=== PATIENT | male | born 1945 | race Caucasian/White ===

== ENCOUNTER 2017-03-21 21:04 | Inpatient (IN) | payer OTHER, MEDICARE ==
[~2017-03-21] VITALS: Ht 174 cm; Wt 71.5 kg
[~2017-03-21 21:04] MED LIST: ASPI81TA82 PO; PROP10TA26 PO; Z.0.UNKNOWN
[2017-03-21 21:06] VITALS: BP 167/92; PULSE 66; RESP 18; TEMP 98.9; O2SAT 98
[2017-03-21 21:07] VITALS: O2SAT 98
[2017-03-21] MEDS ORDERED: SODIUM CHLOR 0.9% 1000 ML INJ 1,000 ML IV ONE (21:09)
[2017-03-21 21:14] VITALS: BP 145/65; PULSE 64; RESP 18; O2SAT 98
--- NOTE | 2017-03-21 21:18 | PD ---
HPI Chief Complaint: Stroke Alert Time Seen by Provider: 21:09 Travel History International Travel<30 days: No Contact w/Intl Traveler<30days: No Traveled to known affect area: No History of Present Illness HPI 71-year-old male with history of subarachnoid bleed in 2010, dementia, presents to the ER today brought in by EMS because he became less oriented according to patient's , and they noted that he has a left facial droop and mild left arm weakness. Patient is able to follow commands currently. He is awake and alert. However, it is not clear whether he is a reliable historian. He denies any pain anywhere. He was last seen normal at 8:30 PM. Modifying Factors: None Associated Signs & Symptoms: Disorientation, left facial droop, left arm weakness Risk Factors: Previous intracranial bleed PFSH Past Medical History Heart Rhythm Problems: Yes Cardiovascular Problems: Yes Cerebrovascular Accident: Yes PNEUMOCCOCAL Vaccine (Year): 2 Past Surgical History Abdominal Surgery: Yes (APPENDIX REMOVED ) Appendectomy: Yes Oral Surgery: Yes (TONSILECTOMY) Tonsillectomy: Yes Other Surgery: Yes Social History Alcohol Use: Yes (2 DRINKS TWICE A WEEK) Tobacco Use: Yes (1/2 PACK EVERY 3 DAYS) Substance Use: No Allergies-Medications (Allergen,Severity, Reaction): Coded Allergies: Penicillin (Verified Allergy, Unknown, 03/21/17) Reported Meds & Prescriptions Reported Meds & Active Scripts Active Review of Systems ROS Limitations: Altered Mental Status (not clear whether he is reliable historian) Physical Exam Narrative GENERAL: Well-developed elderly white male patient currently not in acute distress. Awake, alert. SKIN: Focused skin assessment warm/dry. HEAD: Atraumatic. Normocephalic. EYES: Pupils equal and round. No scleral icterus. No injection or drainage. ENT: No nasal bleeding or discharge. Mucous membranes pink and moist. NECK: Trachea midline. No JVD. CARDIOVASCULAR: Regular rate and rhythm. No murmur appreciated. RESPIRATORY: No accessory muscle use. Clear to auscultation. Breath sounds equal bilaterally. GASTROINTESTINAL: Abdomen soft, non-tender, nondistended. Hepatic and splenic margins not palpable. MUSCULOSKELETAL: No obvious deformities. No clubbing. No cyanosis. No edema. NEUROLOGICAL: Awake and alert. Notable left facial droop which appears to be more pronounced in the lower face and the upper face. Left tongue deviation. Mild left hand pronator drift. PSYCHIATRIC: Appropriate mood and affect; insight and judgment normal. Data Data Last Documented VS Vital Signs Date Time Temp Pulse Resp B/P Pulse Ox O2 Delivery O2 Flow Rate FiO2 03/21/17 21:26 99 Nasal Cannula 2 03/21/17 21:26 18 03/21/17 21:25 65 160/86 03/21/17 21:06 98.9 Orders Diet Npo (03/22/17 Breakfast) Activity Bed Rest (03/21/17 ) Electrocardiogram (03/21/17 ) I-Stat Creatinine (03/21/17 21:09) I-Stat Profile (03/21/17 21:09) Prothrombin Time / Inr (Pt) (03/21/17 21:09) Act Partial Throm Time (Ptt) (03/21/17 21:09) Complete Blood Count With Diff (03/21/17 21:09) Fibrinogen (03/21/17 21:09) Creatine Kinase (Cpk) (03/21/17 21:09) Troponin I (03/21/17 21:09) Ua Includes Microscopic (03/21/17 21:09) Drug Screen, Random Urine (03/21/17 21:09) Type And Screen (03/21/17 21:09) Ct Brain W/O Iv Contrast(Rout) (03/21/17 ) Chest, Single Ap (03/21/17 ) Consult Neurology (03/21/17 ) Blood Glucose (03/21/17 21:09) Ecg Monitoring (03/21/17 21:09) Neuro Checks Q2HX12,Q4H (03/21/17 21:09) Nursing Bedside Swallow Assess .ONCE (03/21/17 21:09) Iv Access Insert/Monitor (03/21/17 21:09) NPO (03/21/17 21:09) Oximetry (03/21/17 21:09) Oxygen Administration (03/21/17 21:09) Sodium Chlor 0.9% 1000 Ml Inj (Ns 1000 M (03/21/17 21:09) Resp Oxygen Kevin C Titrat 1-4 L (03/21/17 21:09) Cath For Specimen (03/21/17 21:09) (Hub Use Only)Inp Phy Cons/Ref (03/21/17 ) Aspirin (Aspirin) (03/21/17 22:00) Labs Laboratory Tests Test 03/21/17 21:14 White Blood Count 8.8 TH/MM3 Red Blood Count 4.79 MIL/MM3 Hemoglobin 14.8 GM/DL Bedside Hemoglobin 15.0 G/DL Hematocrit 44.0 % Bedside Hematocrit 44.0 % Mean Corpuscular Volume 91.9 FL Mean Corpuscular Hemoglobin 30.8 PG Mean Corpuscular Hemoglobin 33.6 % Concent Red Cell Distribution Width 13.6 % Platelet Count 182 TH/MM3 Mean Platelet Volume 9.4 FL Neutrophils (%) (Auto) 61.9 % Lymphocytes (%) (Auto) 27.8 % Monocytes (%) (Auto) 7.4 % Eosinophils (%) (Auto) 2.1 % Basophils (%) (Auto) 0.8 % Neutrophils # (Auto) 5.5 TH/MM3 Lymphocytes # (Auto) 2.5 TH/MM3 Monocytes # (Auto) 0.7 TH/MM3 Eosinophils # (Auto) 0.2 TH/MM3 Basophils # (Auto) 0.1 TH/MM3 CBC Comment DIFF FINAL Differential Comment Bedside Sodium 143 MMOL/L Bedside Potassium 3.9 MMOL/L Bedside Chloride 107 MMOL/L Bedside Blood Urea Nitrogen 17 MG/DL Bedside Creatinine 1.0 MG/DL Bedside Glucose 103 MG/DL [facility] Medical Decision Making Medical Screen Exam Complete: Yes Emergency Medical Condition: Yes Medical Record Reviewed: Yes Interpretation(s) EKG shows NSR, no ST elevation or depression, and no arrhythmias. No significant T-wave inversions. Laboratory Tests Test 03/21/17 21:14 Bedside Glucose 103 MG/DL (60-95) Last [address] 03/21/17 0000 Signed Impressions: Service Date/Time: Tuesday, March 21, 2017 21:16 - CONCLUSION: Chronic and small vessel ischemic changes without any evidence for acute hemorrhage or mass effect. . oJjo Hussein MD Chest X-Ray 03/21/17 0000 Signed Impressions: Service Date/Time: Tuesday, March 21, 2017 21:22 - CONCLUSION: No acute cardiopulmonary disease. Jojo Hussein MD Differential Diagnosis Stroke alertrule out intracranial bleed versus metabolic issues Narrative Course CT did not show any signs of acute intracranial processes. His glucose levels are within normal limits. EKG did not show any signs of dysrhythmias. While in the ER, patient's NIH stroke score is 2. However, his neurological symptoms and facial droop is rapidly clearing in the ER and on evaluation by Dr. Lynn, he does not feel that the patient needs TPA at this point. Patient has been given aspirin and is planned for medical admission. Case was discussed with Dr. Chery for admission. Diagnosis Primary Impression: Stroke Admitting Information Admitting Physician Requests: Admit Domenico Haque MD Mar 21, 2017 21:18
[2017-03-21 21:25] VITALS: BP 160/86; PULSE 65; RESP 18; O2SAT 98
[2017-03-21 21:26] VITALS: RESP 18; O2SAT 99
--- NOTE | 2017-03-21 21:28 | RADRPT ---
EXAM DATE/TIME: 03/21/2017 21:16 [facility] COMPARISON: CT BRAIN W/O CONTRAST, September 20, 2011, 9:58. INDICATIONS : Stroke alert; dysphasia and left facial droop. RADIATION DOSE: 43.53 CTDIvol (mGy) This report was called by Dr Hussein to Dr Reaves at 9: 20 5 PM. MEDICAL HISTORY : Non-responsive. SURGICAL HISTORY : Non-responsive. ENCOUNTER: Initial ACUITY: 1 day PAIN SCALE: Non-responsive LOCATION: cranial TECHNIQUE: Multiple contiguous axial images were obtained of the head. Using automated exposure control and adj ustment of the mA and/or kV according to patient size, radiation dose was kept as low as reasonably a chievable to obtain optimal diagnostic quality images. FINDINGS: There is no evidence for intracranial hemorrhage, mass effect, mass lesions, or edema. The visualize d bony structures appear intact. Moderate degree of brain atrophy is seen. Moderate periventricular white matter changes are seen nonspecific mostly consistent with chronic small vessel ischemic change s. There are no signs of acute infarction for technique. The left MCA appears somewhat dense, howeve r it has the same appearance as 2011 exam. CONCLUSION: Chronic and small vessel ischemic changes without any evidence for acute hemorrhage or mass effect. . Jojo Hussein MD on March 21, 2017 at 21:23 Board Certified Radiologist. This report was verified electronically.
--- NOTE | 2017-03-21 21:30 | RADRPT ---
EXAM DATE/TIME: 03/21/2017 21:22 [facility] COMPARISON: No previous studies available for comparison. INDICATIONS : Stroke alert. MEDICAL HISTORY : None. SURGICAL HISTORY : None. ENCOUNTER: Initial ACUITY: 1 day PAIN SCORE: Non-responsive. LOCATION: Bilateral chest FINDINGS: The lungs are clear without infiltrate, nodule, or mass. There is no appreciable pleural effusion fo r technique. Heart and mediastinum are unremarkable. There are atherosclerotic calcifications of the aorta due to chronic atherosclerotic disease. CONCLUSION: No acute cardiopulmonary disease. Jojo Hussein MD on March 21, 2017 at 21:27 Board Certified Radiologist. This report was verified electronically.
[2017-03-21 21:41] LABS: AUTOMATED NEUTROPHIL # 5.5 TH/MM3 (1.8-7.7); BASOPHIL # 0.1 TH/MM3 (0-0.2); BASOPHIL % 0.8 % (0.0-2.0); EOSINOPHIL # 0.2 TH/MM3 (0-0.4); EOSINOPHIL % 2.1 % (0.0-4.0); HEMO FLAGS DIFF FINAL; LYMPH % 27.8 % (9.0-44.0); LYMPHOCYTE # 2.5 TH/MM3 (1.0-4.8); MEAN CELL VOLUME 91.9 FL (80.0-100.0); MEAN CORPUSCULAR HEMOGLOBIN 30.8 PG (27.0-34.0); MEAN CORPUSCULAR HGB CONC 33.6 % (32.0-36.0); MONO % 7.4 % (0.0-8.0); NEUT % 61.9 % (16.0-70.0); PLATELET COUNT 182 TH/MM3 (150-450); RED BLOOD COUNT 4.79 MIL/MM3 (4.50-5.90); RED CELL DISTRIBUTION WIDTH 13.6 % (11.6-17.2); WHITE BLOOD COUNT 8.8 TH/MM3 (4.0-11.0)
[2017-03-21 21:42] LABS: I-STAT POTASSIUM 3.9 MMOL/L (3.5-4.9); I-STAT SODIUM 143 MMOL/L (138-146)
[2017-03-21] MEDS ORDERED: SODIUM CHLOR 0.9% 1000 ML INJ 1,000 ML IV SCH (21:55)
[2017-03-21] MEDS ORDERED: SODIUM CHLORIDE 0.9% FLUSH 10 ML FLUSH IV FLUSH PRN ×2 (22:00→22:30)
[2017-03-21] MEDS ORDERED: ASPIRIN 325 MG TAB PO ONE (22:00)
[2017-03-21] MEDS ORDERED: GLUCAGON 1 MG/ML VIAL IM/SQ PRN (22:00)
[2017-03-21] MEDS ORDERED: DEXTROSE 50% IN WATER 50 ML VIAL(D50) IV PUSH PRN (22:00)
[2017-03-21 22:01] LABS: CREATINE KINASE 79 U/L (39-308)
[2017-03-21 22:23] LABS: PROTHROMBIN TIME - PATIENT 11.4 SEC (9.8-11.6)
--- NOTE | 2017-03-21 22:23 | MB ---
cc: JERROD BROOKS M.D. DATE OF CONSULTATION 03/21/[address] Haque. REASON FOR CONSULTATION Stroke alert. HISTORY OF PRESENT ILLNESS Mr. Wang is a 71-year-old man who was last seen normal at 8:30. He was found shortly thereafter to have left facial droop, left-sided weakness, was confused and was less oriented. He presented to the emergency room as a stroke alert. In the interim, however, he has had complete resolution of his symptoms. PAST MEDICAL HISTORY 1. History of subarachnoid hemorrhage in 2010. 2. History of dementia. MEDICATIONS 1. He takes an aspirin a day but has not been on this for quite sometime. 2. And inderal. SOCIAL HISTORY He does smoke. Does drink alcohol. NEUROLOGICAL EXAMINATION VITAL SIGNS: Blood pressure is 160/86, pulse 65, respiratory rate is 18, temperature is 98.9 degrees. Higher cortical function, he is alert. He is oriented to himself, not to place. Speech is fluent with no paraphasic errors. No dysarthria. Cranial nerves are intact. He has no facial droop at the present time. On motor examination there is 5/5 strength of all major groups in both upper and lower extremities. Fine motor skills normal. There is no drift. Reflexes are symmetrical. IMAGING CT of the brain reveals chronic changes. . No acute change present. LABORATORY DATA The white count is 8800, hemoglobin 14.8, hematocrit 44%, platelets 182,000. Sodium is 143, potassium 3.9, chloride 107. BUN is 17, creatinine 1.0. Glucose 103. EKG is sinus rhythm. IMPRESSION Probable TIA. He has resolved his symptoms completely at the present time. For that reason would not recommend TPA. He is not a candidate for intervention given the resolution also and therefore we do not need to proceed with any type of advanced imaging. At the present time I would recommend starting aspirin 325 mg daily. We will obtain further evaluation with an MRI, MRA of brain, carotid ultrasound, echocardiogram and lipid panel. MD LIZETH Whitt/MOIRA /9:56 PM /10:10 PM
[2017-03-21] MEDS ORDERED: NALOXONE HCL 0.4 MG/ML AMP IV PRN (22:30)
[2017-03-21] MEDS ORDERED: ONDANSETRON HCL 4 MG/2 ML VIAL IVP PRN (22:30)
[2017-03-21] MEDS: SODIUM CHLOR 0.9% 1000 ML INJ 1,000 ML IV SCH (22:33)
[2017-03-21 23:10] VITALS: BP 152/70; PULSE 58; RESP 18; O2SAT 100
[2017-03-21] MEDS ORDERED: PROP120C PO (23:12)
[2017-03-21] MEDS ORDERED: DONE5TAB7 PO (23:12)
[2017-03-21] MEDS ORDERED: CLOP75TA PO (23:12)
[2017-03-21] MEDS ORDERED: MEMA1TAB PO (23:12)
[2017-03-21] MEDS ORDERED: LOVA10TA PO (23:12)
[2017-03-22] VITALS (8 sets, daily range): BP systolic 131–149; BP diastolic 63–76; PULSE 51–249; RESP 17–20; TEMP 96.2–97.3; O2SAT 91–99
--- NOTE | 2017-03-22 00:46 | RADRPT ---
EXAM DATE/TIME: 03/21/2017 23:50 [facility] COMPARISON: No previous studies available for comparison. INDICATIONS : Transient ischemic attack. MEDICAL HISTORY : CVA. Irregular heartbeat. Clotting problems. SURGICAL HISTORY : Tonsillectomy. Appendectomy. Blood transfusions. ENCOUNTER: Initial ACUITY: 1 day PAIN SCORE: 0/10 LOCATION: Bilateral neck PEAK SYSTOLIC VELOCITIES (cm/sec): ICA/CCA RATIO: Right: 1.0 Left: 1.5 ICA: Right: 63 Left: 88 CCA: Right: 61 Left: 58 ECA: Right: 79 Left: 76 VERTEBRAL: Right: 72 antegrade Left: 34 antegrade Elevated flow velocities and ICA/CCA ratios have been found to correlate with increased degrees of vessel stenosis, calculated as percentage of diameter relative to a normal segment of distal ICA/CCA FINDINGS: Ultrasound of the carotid arteries was performed bilaterally using real-time Doppler and color Dopple r imaging. Examination of the right carotid artery demonstrates mild fibrous plaque within the bifurcation. No w aveform abnormalities are identified and no spectral broadening is seen. Examination of the left carotid artery demonstrates mixed fibrous and calcific plaque within the bulb . No waveform abnormalities are identified and no spectral broadening is seen. There is antegrade flow in both vertebral arteries. CONCLUSION: 1. No evidence of hemodynamically significant lesion. Dom Diallo MD on March 22, 2017 at 0:43 Board Certified Radiologist. This report was verified electronically.
--- NOTE | 2017-03-22 02:02 | HHI.HP ---
[facility] Unknown Admission Diagnosis stroke alert Diagnoses: (1) Stroke Diagnosis: Principal Travel History International Travel<30 Days: No Contact w/Intl Traveler <30 Da: No Traveled to Known Affected Are: No History of Present Illness Mr. Wang is a 71 year old male. He has dementia and is a smoker at baseline. 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 They report an acute onset of left facial droop, slurred speech, confussion, and left hand weakness. These symptoms have returned to baseline. Some chronic neurodeficits are present ( and may in part be related to his dementia) secondary to a hemorrhagic CVA in 2010. When I visited him he has no complaints and says he feels his normal self. No headaches. No nausea. His father used to have TIAs. Review of Systems Constitutional: DENIES: Fatigue, Fever, Chills Eyes: DENIES: Blurred vision, Diplopia Ears, nose, mouth, throat: DENIES: Vertigo Respiratory: DENIES: Shortness of breath Cardiovascular: DENIES: Chest pain, Palpitations, Syncope Gastrointestinal: DENIES: Abdominal pain, Black stools, Bloody stools Musculoskeletal: DENIES: Joint pain Integumentary: DENIES: Abnormal pigmentation Hematologic/lymphatic: DENIES: Bruising Immunologic/allergic: DENIES: Eczema Neurologic: DENIES: Abnormal gait, Headache, Paresthesias Psychiatric: DENIES: Anxiety Past Family Social History Past Medical History Hemorrhagic CVA in 2010 Smoker Dementia Past Surgical History subarachnoid hemorrhage intervention Reported Medications Reported Meds & Active Scripts Active Reported Propranolol ER 24 HR (Propranolol HCl) 120 Mg Cap 120 Mg PO DAILY Lovastatin 10 Mg Tab 10 Mg PO DAILY Clopidogrel (Clopidogrel Bisulfate) 75 Mg Tab 75 Mg PO DAILY Donepezil 5 Mg Tab 5 Mg PO HS Memantine 5 Mg Tab 5 Mg PO BID Allergies: Coded Allergies: Penicillin (Verified Allergy, Unknown, 03/21/17) Active Ordered Medications Administered Medications Medications (Trade) Dose Ordered Sig/Abraham Route PRN Reason Start Time Stop Time Status Last Admin Dose Admin Sodium Chloride (NS 1000 ml Inj) 1,000 ml @ 100 mls/hr Q10H IV 03/21/17 22:18 03/21/17 22:33 Family History TIAs in father Social History Smoker Infrequent alcohol use No drug abuse Physical Exam Vital Signs Vital Signs Date Time Temp Pulse Resp B/P Pulse Ox O2 Delivery O2 Flow Rate FiO2 03/22/17 00:20 64 03/22/17 00:15 98 2.00 03/22/17 00:00 96.2 60 18 142/68 98 03/21/17 23:10 58 18 152/70 100 Nasal Cannula 2 03/21/17 21:26 99 Nasal Cannula 2 03/21/17 21:26 18 99 Nasal Cannula 2 03/21/17 21:25 65 18 160/86 98 Nasal Cannula 2 03/21/17 21:14 64 18 145/65 98 Nasal Cannula 2 03/21/17 21:07 98 Nasal Cannula 2.00 03/21/17 21:07 98 2.00 03/21/17 21:06 98.9 66 18 167/92 98 Physical Exam GENERAL: NAD, A&Ox3 SKIN: Warm and dry. HEAD: Normocephalic. EYES: No scleral icterus. No injection or drainage. NECK: Supple, trachea midline. No JVD or lymphadenopathy. CARDIOVASCULAR: Regular rate and rhythm without murmurs, gallops, or rubs. RESPIRATORY: Breath sounds equal bilaterally. No accessory muscle use. GASTROINTESTINAL: Abdomen soft, non-tender, nondistended. MUSCULOSKELETAL: No cyanosis, or edema. BACK: Nontender without obvious deformity. No CVA tenderness. NEURO: Symmetrical strength in legs and arms/hands. Some upper extremity movement deficits on left (chronic). Laboratory Laboratory Tests Test 03/21/17 03/21/17 21:14 21:40 White Blood Count 8.8 Red Blood Count 4.79 Hemoglobin 14.8 Bedside Hemoglobin 15.0 Hematocrit 44.0 Bedside Hematocrit 44.0 Mean Corpuscular Volume 91.9 Mean Corpuscular Hemoglobin 30.8 Mean Corpuscular Hemoglobin 33.6 Concent Red Cell Distribution Width 13.6 Platelet Count 182 Mean Platelet Volume 9.4 Neutrophils (%) (Auto) 61.9 Lymphocytes (%) (Auto) 27.8 Monocytes (%) (Auto) 7.4 Eosinophils (%) (Auto) 2.1 Basophils (%) (Auto) 0.8 Neutrophils # (Auto) 5.5 Lymphocytes # (Auto) 2.5 Monocytes # (Auto) 0.7 Eosinophils # (Auto) 0.2 Basophils # (Auto) 0.1 CBC Comment DIFF FINAL Differential Comment Bedside Sodium 143 Bedside Potassium 3.9 Bedside Chloride 107 Bedside Blood Urea Nitrogen 17 Bedside Creatinine 1.0 Bedside Glucose 103 Total Creatine Kinase 79 Troponin I LESS THAN 0.02 Blood Type O POSITIVE Antibody Screen NEGATIVE Blood Bank Comment Prothrombin Time 11.4 Prothromb Time International 1.0 Ratio Activated Partial 27.0 Thromboplast Time Fibrinogen 285 Result Diagram: 03/21/172113 Assessment and Plan Problem List: (1) Stroke ICD Code: I63.9 Status: Acute (2) Dementia ICD Code: F03.90 Status: Acute (3) History of hemorrhagic stroke with residual hemiparesis ICD Code: I69.359 Status: Acute Assessment and Plan Acute CVA vs. TIA MRI, MRA Neurology consulted Follow clinically Aspirin Neuro checks Dementia Supportive care May be related to history of brain hemorrhage Hx of Brain Hemorrhage Supportive care Tobacco Abuse Cessation recommended Code Status Full Code Physician Certification 2 Midnight Certification Type: Admission for Inpatient Services Order for Inpatient Services The services are ordered in accordance with Medicare regulations or non- Medicare payer requirements, as applicable. In the case of services not specified as inpatient-only, they are appropriately provided as inpatient services in accordance with the 2-midnight benchmark. Estimated LOS (days): 1 days is the estimated time the patient will need to remain in the hospital, assuming treatment plan goals are met and no additional complications. Post-Hospital Plan: Home Lul Chery MD March 22, 2017 02:01
[2017-03-22 04:18] LABS: BACTERIA, URINE MOD /hpf; BLOOD, URINE NEG (NEG); GLUCOSE,URINE NEG (NEG); KETONE, URINE NEG (NEG); MUCUS URINE FEW /lpf (OCC); NITRITE,URINE NEG (NEG); PH, URINE 7.5 (5.0-8.5); SQUAMOUS EPITHELIAL CELL URINE <1 /hpf (0-5); TRIPLE PHOSPHATE CRYSTAL,URINE OCC /hpf; URINE COLOR YELLOW (YELLW/STRAW)
[2017-03-22 04:32] LABS: AMPHETAMINE, URINE NEG (NEG); BARBITURATES, URINE NEG (NEG); COCAINE, URINE NEG (NEG)
--- NOTE | 2017-03-22 05:34 | HHI.PR ---
Blank section for building Received call from RN that patient had 30- 40 sec run of asymptomatic Vtach: VS- 149/76,19,99% ON 2L/NC telemetry reviewed, BMP and mag ordered stat Cardiology consult place discussed with Dr. Bejarano- Transfer to [facility] for closer monitoring (Yanet Frey) Yanet Frey March 22, 2017 05:34 Della Bejarano MD May 03, 2017 11:42
[2017-03-22] MEDS: SODIUM CHLOR 0.9% 1000 ML INJ 1,000 ML IV SCH (05:56)
[2017-03-22 06:03] LABS: AUTOMATED NEUTROPHIL # 4.6 TH/MM3 (1.8-7.7); BASOPHIL % 0.6 % (0.0-2.0); EOSINOPHIL # 0.2 TH/MM3 (0-0.4); EOSINOPHIL % 2.6 % (0.0-4.0); HEMATOCRIT 38.3 % (39.0-51.0); HEMO FLAGS DIFF FINAL; LYMPH % 30.1 % (9.0-44.0); LYMPHOCYTE # 2.3 TH/MM3 (1.0-4.8); MEAN CELL VOLUME 91.2 FL (80.0-100.0); MEAN CORPUSCULAR HEMOGLOBIN 31.8 PG (27.0-34.0); MEAN CORPUSCULAR HGB CONC 34.9 % (32.0-36.0); MONO % 6.6 % (0.0-8.0); NEUT % 60.1 % (16.0-70.0); PLATELET COUNT 141 TH/MM3 (150-450); RED CELL DISTRIBUTION WIDTH 13.5 % (11.6-17.2); WHITE BLOOD COUNT 7.7 TH/MM3 (4.0-11.0)
[2017-03-22 06:30] LABS: ALKALINE PHOSPHATASE 84 U/L (45-117); ALT (GPT) 22 U/L (12-78); ANION GAP 8 MEQ/L (5-15); AST (GOT) 17 U/L (15-37); BICARBONATE 24.7 MEQ/L (21.0-32.0); BLOOD UREA NITROGEN 16 MG/DL (7-18); CHLORIDE 110 MEQ/L (98-107); GLOMERULAR FILTRATION RATE 87 ML/MIN (>89); HDL CHOLESTEROL 22.9 MG/DL (40.0-60.0); LDL CHOLESTEROL 84 MG/DL (0-99); MAGNESIUM 2.1 MG/DL (1.5-2.5); SODIUM (NA) 143 MEQ/L (136-145); TOTAL BILIRUBIN ADULT 0.2 MG/DL (0.2-1.0)
[2017-03-22] MEDS ORDERED: INSULIN ASPART SUPPLEMENTAL SCALE SQ SCH (07:00)
[2017-03-22] MEDS ORDERED: ATROPINE SULFATE 1 MG/10 ML SYRINGE ONE (08:52)
[2017-03-22] MEDS ORDERED: SODIUM CHLORIDE 0.9% FLUSH 10 ML FLUSH IV FLUSH SCH ×2 (09:00)
[2017-03-22] MEDS ORDERED: ASPIRIN 325 MG TAB PO SCH (09:00)
--- NOTE | 2017-03-22 10:08 | RADRPT ---
EXAM DATE/TIME: 03/22/2017 09:18 [facility] COMPARISON: CT BRAIN W/O CONTRAST, March 21, 2017, 21:16. INDICATIONS : Altered mental status. MEDICAL HISTORY : Dementia. Stroke SURGICAL HISTORY : Appendectomy. Tonsillectomy. ENCOUNTER: Initial ACUITY: 2 day PAIN SCORE: 0/10 LOCATION: head TECHNIQUE: Multiplanar, multisequence MRI of the brain was performed without contrast. FINDINGS: There are a few punctate areas of focally restricted diffusion and high convexity with right posterio r frontal cortex and a single similar focus in the posterior right temporal region consistent with sm all areas of subacute cortical infarction. There is moderate chronic appearing deep white matter T2 p rolongation. Mild central and cortical atrophic change. There is no evidence of intracranial mass or recent hemorrhage. He the extracranial structures are benign and intact. CONCLUSION: Several tiny areas of subacute cortical infarction in the right hemisphere. Atrophy and chronic white matter changes. Alo Garcia MD on March 22, 2017 at 10:03 Board Certified Radiologist. This report was verified electronically.
--- NOTE | 2017-03-22 10:15 | RADRPT ---
EXAM DATE/TIME: 03/22/2017 09:18 [facility] COMPARISON: No previous studies available for comparison. INDICATIONS : Altered mental status. MEDICAL HISTORY : Stroke Dementia. SURGICAL HISTORY : Appendectomy. Tonsillectomy. ENCOUNTER: Initial ACUITY: 2 day PAIN SCORE: 0/10 LOCATION: head Please note a normal MRA of the brain does not entirely exclude the possibility of a small aneurysm, nor the possibility of distal intracranial vessel disease. TECHNIQUE: 3D time of flight MRA was performed. Source images, multiplanar STS MIP, and 3D volume MIP reconstru ctions were reviewed. FINDINGS: There is excellent visualization of the major intracranial arteries out to the second-order branch ve ssels. There is no evidence for aneurysm, vessel truncation or stenosis, and no evidence for vascula r malformation. CONCLUSION: Normal examination. Alo Garcia MD on March 22, 2017 at 10:11 Board Certified Radiologist. This report was verified electronically.
[2017-03-22 11:11] LABS: HEMOGLOBIN A1b 1.3 %; HEMOGLOBIN Ao 87.2 %; HEMOGLOBIN LA1C 1.7 %; HEMOGLOBIN P3 3.4 %
--- NOTE | 2017-03-22 11:58 | MB ---
cc: YENNIFER SIMON DATE OF CONSULTATION 03/22/2017 REASON FOR CONSULTATION Evaluation of possible ventricular tachycardia. CHIEF COMPLAINT The patient was moved to ICU due to apparent tachycardia on telemetry. PRESENT ILLNESS Bird Wang is a 71-year-old man admitted to the hospital with a TIA. He had left facial droop and left-sided weakness and was confused and less oriented. This was detected by the ex- and he was brought into the hospital. He was on a different floor and on telemetry they thought he had a run of V-tach. I am looking at the strips. This is from March 22 at 05:00 a.m. and there are seven concurrent leads. The top lead shows sinus bradycardia. The six other leads which are recorded simultaneously shown apparent tachycardia which obviously is artifact. There is no V-tach seen on this strip. The patient has no known cardiac history. He has a history of dementia. He can not remember having the left-sided weakness but his ex- is in the room who witnessed it. PAST MEDICAL HISTORY A subarachnoid hemorrhage in 2010. History of dementia. MEDICATIONS Charted. SOCIAL HISTORY He is a current smoker. PHYSICAL EXAM GENERAL: An alert white male. He is not in any acute distress. He is asking when he can go home. VITAL SIGNS: Charted. He has sinus bradycardia on telemetry. HEENT: Exam unremarkable. NECK: Possible very soft left carotid bruit. CHEST: Clear to auscultation. CARDIAC: Exam showed shows distant S1, normal S2. Bradycardic. No murmur. ABDOMEN: Soft, nontender. EXTREMITIES: No clubbing, cyanosis or edema. EKG The EKG demonstrates sinus bradycardia, first-degree AV block some minor nonspecific ST abnormality which is similar to the prior tracing. LABORATORIES Hematocrit of 38.3. Creatinine of 0.86. LDL cholesterol of 84, HDL of only 23. IMAGING STUDIES Carotid Doppler study shows no evidence of significant stenosis. ECHO DOPPLER Mild LVH, normal systolic function. There is a wall motion abnormality read by Dr. Monique but having looked at the study myself I do not see a wall motion abnormality. IMPRESSION The apparent arrhythmias is actually artifact. There is no arrhythmia detected. The patient is admitted with a TIA. He still smokes. He was counseled strongly to quit smoking. I will be available to follow up as needed. MD MARCY Perez/JULIÁN /10:37 AM /11:37 AM
[2017-03-22] MEDS ORDERED: ASPI81CH CHEW (12:09)
--- NOTE | 2017-03-22 12:17 | HHI.DS ---
Discharge Summary Admission Date Mar 21, 2017 at 21:58 Discharge Date: March 22, 2017 Admitting Diagnosis stroke alert (1) Dementia ICD Code: F03.90 (2) History of hemorrhagic stroke with residual hemiparesis ICD Code: I69.359 (3) TIA (transient ischemic attack) ICD Code: G45.9 Procedures none Brief History - From Admission Mr. Wang is a 71 year old male. He has dementia and is a smoker at baseline. 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 They report an acute onset of left facial droop, slurred speech, confussion, and left hand weakness. These symptoms have returned to baseline. Some chronic neurodeficits are present ( and may in part be related to his dementia) secondary to a hemorrhagic CVA in 2010. When I visited him he has no complaints and says he feels his normal self. No headaches. No nausea. His father used to have TIAs. CBC/BMP: 03/22/17 0540 03/22/17 0540 Significant Findings Laboratory Tests Test 03/21/17 03/22/17 03/22/17 21:14 03:55 05:40 Bedside Glucose 103 MG/DL (60-95) Troponin I LESS THAN 0.02 NG/ML (0.02-0.05) Urine Turbidity HAZY (CLEAR) Urine WBC 31 /hpf (0-5) Urine Triple Phosphate OCC /hpf (NONE) Crystals Urine Bacteria MOD /hpf (NONE) Urine Mucus FEW /lpf (OCC) Red Blood Count 4.20 MIL/MM3 (4.50-5.90) Hematocrit 38.3 % (39.0-51.0) Platelet Count 141 TH/MM3 (150-450) Chloride Level 110 MEQ/L (98-107) Estimat Glomerular Filtration 87 ML/MIN (>89) Rate Calcium Level 8.1 MG/DL (8.5-10.1) Total Protein 5.8 GM/DL (6.4-8.2) Albumin 3.1 GM/DL (3.4-5.0) HDL Cholesterol 22.9 MG/DL (40.0-60.0) Imaging Last Impressions Head Magnetic Resonance Angiography 03/22/17 Signed Impressions: Service Date/Time: Wednesday, March 22, 2017 09:18 - CONCLUSION: Normal examination. Alo Garcia MD Brain MRI 03/22/17 Signed Impressions: Service Date/Time: Wednesday, March 22, 2017 09:18 - CONCLUSION: Several tiny areas of subacute cortical infarction in the right hemisphere. Atrophy and chronic white matter changes. Alo Garcia MD Head CT 03/21/17 Signed Impressions: Service Date/Time: Tuesday, March 21, 2017 21:16 - CONCLUSION: Chronic and small vessel ischemic changes without any evidence for acute hemorrhage or mass effect. . Jojo Hussein MD Chest X-Ray 03/21/17 Signed Impressions: Service Date/Time: Tuesday, March 21, 2017 21:22 - CONCLUSION: No acute cardiopulmonary disease. Jojo Hussein MD Carotid Artery Ultrasound 03/21/17 Signed Impressions: Service Date/Time: Tuesday, March 21, 2017 23:50 - CONCLUSION: 1. No evidence of hemodynamically significant lesion. Dom Diallo MD PE at Discharge GENERAL: NAD, A&Ox3 SKIN: Warm and dry. HEAD: Normocephalic. EYES: No scleral icterus. No injection or drainage. NECK: Supple, trachea midline. No JVD or lymphadenopathy. CARDIOVASCULAR: Regular rate and rhythm without murmurs, gallops, or rubs. RESPIRATORY: Breath sounds equal bilaterally. No accessory muscle use. GASTROINTESTINAL: Abdomen soft, non-tender, nondistended. MUSCULOSKELETAL: No cyanosis, or edema. Mild left hemiplegia BACK: Nontender without obvious deformity. No CVA tenderness. Pt update on day of discharge Negative work up for CVA. TIA is likely. V-tach suspicions overnight were artifact. Cleared by neurology and cardiology for discharge. Medically stable for discharge. Hospital Course Mr. Wang is a 71 year old male. He had transient confusion, left face/arm weakness, and slurred speech. This resolved and work up suggests TIA. No other complaints. Medically stable for discharge today. Pt Condition on Discharge: Stable Discharge Disposition: Discharge Home Discharge Time: <= 30 minutes Discharge Instructions DIET: Follow Instructions for: As Tolerated, No Restrictions Activities you can perform: Regular-No Restrictions Follow up Referrals: PCP Follow-up - 1 Week New Medications: Aspirin (Aspirin) 81 Mg Chew 81 MG CHEW DAILY Blood Clot Prevention #30 Ref 0 TAB Continued Medications: Clopidogrel (Clopidogrel) 75 Mg Tab 75 MG PO DAILY Blood Clot Prevention #30 Ref 0 TAB Donepezil (Donepezil) 5 Mg Tab 5 MG PO HS Dementia #30 Ref 0 TAB Lovastatin (Lovastatin) 10 Mg Tab 10 MG PO DAILY Cholesterol Management #30 Ref 0 TAB Memantine (Memantine) 5 Mg Tab 5 MG PO BID Alzheimer's Dementia Ref 0 TAB Propranolol ER 24 HR (Propranolol ER 24 HR) 120 Mg Cap 120 MG PO DAILY #30 Ref 0 CAP Lul Chery MD March 22, 2017 12:17
--- NOTE | 2017-03-22 20:01 | EC ---
Study Study Date:03/22/2017 STUDY CONCLUSIONS SUMMARY - Left ventricle: The cavity size was normal. Wall thickness was increased in a pattern of moderate LVH. Systolic function was normal. The estimated ejection fraction was 55%. Mild distal anteroseptal hypokinesis. - Mitral valve: Mild regurgitation. If LV function is below 40, please consider prescribing an ACEI or ARB or document rationale for non-use. PROCEDURE DATA STUDY STATUS: Elective. Procedure: Transthoracic echocardiography. Image quality was good. Scanning was performed from the parasternal, apical, and subcostal acoustic windows. Study completion: The patient tolerated the procedure well. Transthoracic echocardiography. M-mode, complete 2D, complete spectral Doppler, and color Doppler. Patient status: Inpatient. CARDIAC ANATOMY LEFT VENTRICLE: The cavity size was normal. Wall thickness was increased in a pattern of moderate LVH. Systolic function was normal. The estimated ejection fraction was 55%. Mild distal anteroseptal hypokinesis. AORTIC VALVE: Trileaflet; normal thickness leaflets. Doppler: Transvalvular velocity was within the normal range. There was no stenosis. No regurgitation. AORTA: Aortic root: The aortic root was normal in size. MITRAL VALVE: Structurally normal valve. Doppler: Transvalvular velocity was within the normal range. There was no evidence for stenosis. Mild regurgitation. LEFT ATRIUM: The atrium was normal in size. RIGHT VENTRICLE: The cavity size was normal. Wall thickness was normal. PULMONIC VALVE: Doppler: Transvalvular velocity was within the normal range. There was no evidence for stenosis. No regurgitation. TRICUSPID VALVE: Structurally normal valve. Doppler: Transvalvular velocity was within the normal range. No regurgitation. PULMONARY ARTERY: The main pulmonary artery was normal-sized. Systolic pressure was within the normal range. RIGHT ATRIUM: The atrium was normal in size. PERICARDIUM: There was no pericardial effusion. SYSTEMIC VEINS: Inferior vena cava: The vessel was normal in size. Prepared and signed by Julian Monique [id number]
--- NOTE | 2017-03-22 22:51 | EKG ---
Date Performed: 03/21/2017 Time Performed: 21:35:10 PTAGE: 71 years EKG: Sinus rhythm WITH FIRST DEGREE AV BLOCK WITH OCCASIONAL SUPRAVENTRICULAR PREMATURE COMPLEXES NONSPECIFIC ST & T-W AVE ABNORMALITY ABNORMAL ECG NO PREVIOUS TRACING DOCTOR: Grey Hobbs Interpretating Date/Time 03/22/2017 22:50:09
--- NOTE | 2017-03-22 23:17 | EKG ---
Date Performed: 03/22/2017 Time Performed: 07:45:24 PTAGE: 71 years EKG: Atrial fibrillation with slow ventricular response. Left axis deviation Poor R wave progres [place] - probable normal variant Lateral ST-T changes are nonspecific Abnormal ECG PREVIOUS TRACING : 03/21/2017 21.35 Compared to prior tracing no significant change DOCTOR: Grey Hobbs Interpretating Date/Time 03/22/2017 23:14:42
== END 2017-03-22 12:56 | disposition home or self-care (01) | DRG 69 ==
LOC: NEPC 21:04 → NEDA 21:58 → N06B 23:28 → N03A 03-22 06:54
PROVIDERS: ADMIT Hospitalist; ATTEND Hospitalist
DX: G45.9 Transient cerebral ischemic attack, unspecified (principal); I69.059 Hemiplegia and hemiparesis following nontraumatic subarachnoid hemorrhage affecting unspecified side; F03.90 Unspecified dementia, unspecified severity, without behavioral disturbance, psychotic disturbance, mood disturbance, and anxiety; F17.210 Nicotine dependence, cigarettes, uncomplicated; Z88.0 Allergy status to penicillin
CPT/HCPCS: 70450; 70544; 70551; 71010; 80053; 80061; 80307; 81001; 82435; 82550; 82565; 82947; 82948; 83036; 83735; 84132; 84295; 84484; 84520; 85025; 85384; 85610; 85730; 86850; 86900; 86901; 87641; 93005; 93306; 93880; J0461; J7030

== ENCOUNTER 2017-06-19 20:17 | Observation (INO) | payer MEDICARE, OTHER ==
[~2017-06-19] VITALS: Ht 172.7 cm; Wt 75.5 kg
[~2017-06-19 20:17] MED LIST changes: +ASPI81CH CHEW; -ASPI81TA82 PO; +CLOP75TA PO; +DONE5TAB7 PO; +LOVA10TA PO; +MEMA1TAB PO; -PROP10TA26 PO; +PROP120C PO; -Z.0.UNKNOWN
[2017-06-19 20:22] VITALS: BP 155/69; PULSE 55; RESP 16; TEMP 96.5; O2SAT 97
[2017-06-19] MEDS ORDERED: SODIUM CHLORIDE 0.9% FLUSH 10 ML FLUSH IVF PRN (20:30)
[2017-06-19] MEDS ORDERED: SODIUM CHLOR 0.9% 1000 ML INJ 1,000 ML IV ONE (20:30)
[2017-06-19] MEDS ORDERED: ATOR40TA16 PO (20:35)
[2017-06-19] MEDS ORDERED: ONDANSETRON HCL 4 MG/2 ML VIAL IV PUSH ONE (20:45)
--- NOTE | 2017-06-19 21:17 | RADRPT ---
EXAM DATE/TIME: 06/19/2017 20:55 [facility] COMPARISON: CHEST SINGLE AP, March 21, 2017, 21:22. INDICATIONS : Shortness of breath. MEDICAL HISTORY : None. SURGICAL HISTORY : None. ENCOUNTER: Initial ACUITY: 2 days PAIN SCORE: 0/10 LOCATION: chest FINDINGS: A single view of the chest demonstrates the lungs to be symmetrically aerated without evidence of mas s, infiltrate or effusion. The cardiomediastinal contours are unremarkable. Stable degenerative kelly nges in both a.c. joints and thoracic spine.. CONCLUSION: The lungs are clear. Yusef Fisher MD on June 19, 2017 at 21:15 Board Certified Radiologist. This report was verified electronically.
[2017-06-19 21:27] LABS: AUTOMATED NEUTROPHIL # 9.7 TH/MM3 (1.8-7.7); BASOPHIL # 0.1 TH/MM3 (0-0.2); BASOPHIL % 0.6 % (0.0-2.0); EOSINOPHIL # 0.2 TH/MM3 (0-0.4); EOSINOPHIL % 1.5 % (0.0-4.0); HEMATOCRIT 40.4 % (39.0-51.0); HEMO FLAGS DIFF FINAL; LYMPH % 15.3 % (9.0-44.0); LYMPHOCYTE # 1.9 TH/MM3 (1.0-4.8); MEAN CELL VOLUME 91.6 FL (80.0-100.0); MEAN CORPUSCULAR HEMOGLOBIN 30.4 PG (27.0-34.0); MEAN CORPUSCULAR HGB CONC 33.2 % (32.0-36.0); MONO % 6.1 % (0.0-8.0); NEUT % 76.5 % (16.0-70.0); PLATELET COUNT 207 TH/MM3 (150-450); RED BLOOD COUNT 4.41 MIL/MM3 (4.50-5.90); RED CELL DISTRIBUTION WIDTH 13.4 % (11.6-17.2); WHITE BLOOD COUNT 12.7 TH/MM3 (4.0-11.0)
[2017-06-19 21:30] VITALS: BP 150/65; PULSE 55; RESP 16; O2SAT 99
[2017-06-19 21:41] LABS: ANION GAP 10 MEQ/L (5-15); AST (GOT) 23 U/L (15-37); BICARBONATE 20.8 MEQ/L (21.0-32.0); BLOOD UREA NITROGEN 18 MG/DL (7-18); CHLORIDE 110 MEQ/L (98-107); GLOMERULAR FILTRATION RATE 75 ML/MIN (>89); MAGNESIUM 1.8 MG/DL (1.5-2.5); POTASSIUM 3.9 MEQ/L (3.5-5.1); SODIUM (NA) 141 MEQ/L (136-145)
[2017-06-19 21:41] LABS: BLOOD, URINE NEG (NEG); COMMENT (UR) CULTURE INDICATED; CULTURE IF INDICATED CULTURE INDICATED; GLUCOSE,URINE NEG (NEG); KETONE, URINE NEG (NEG); NITRITE,URINE NEG (NEG); PH, URINE 7.5 (5.0-8.5); URINE COLOR YELLOW (YELLW/STRAW)
[2017-06-19 21:42] LABS: ALT (GPT) 33 U/L (12-78)
[2017-06-19 21:46] LABS: ALKALINE PHOSPHATASE 96 U/L (45-117); APTT (PATIENT) 23.5 SEC (24.3-30.1); INTERNATIONAL NORMALIZED RATIO 1.1 RATIO; PROTHROMBIN TIME - PATIENT 11.9 SEC (9.8-11.6); TOTAL BILIRUBIN ADULT 0.9 MG/DL (0.2-1.0)
[2017-06-19 22:00] VITALS: BP 154/67; PULSE 54; RESP 16; O2SAT 99
[2017-06-19] MEDS ORDERED: cefTRIAXone INJ 1,000 MG in SODIUM CHLORIDE 0.9% INJ 100 ML IV ONE (22:30)
--- NOTE | 2017-06-19 22:39 | PD ---
HPI Chief Complaint: Syncope/Near-Syncope Time Seen by Provider: 20:28 Travel History International Travel<30 days: No Contact w/Intl Traveler<30days: No Traveled to known affect area: No History of Present Illness HPI This 71 old man who presents to the emergency department with a near syncopal episode. His a history of hyperlipidemia, as well as some mild dementia, and was initiated when he had a near-syncopal percent collapse. His called EMS. He was diaphoretic pale and vomiting on EMS arrival. His heart rate was in the 30s, sinus bradycardia. He was given 0.5 of atropine with improvement in his heart rate the 70s. His blood pressure was stable the whole time. He is also given 4 Zofran and some IV fluid. He felt somewhat improved in route. He does take propranolol 120 mg extended release. He denies taking any extra medications. He's not had previous similar episodes. History Past Medical History Narrative Medical Hyperlipidemia Dementia History of hemorrhagic CVA in 2010 History tobacco use Tetanus Vaccination: < 5 Years Influenza Vaccination: No PNEUMOCCOCAL Vaccine (Year): 2 Social History Alcohol Use: Yes (OCCASSIONALLY) Tobacco Use: Yes (1/2 PPD) Allergies-Medications (Allergen,Severity, Reaction): Coded Allergies: Penicillin (Verified Allergy, Unknown, 06/19/17) Reported Meds & Prescriptions Reported Meds & Active Scripts Active Aspirin 81 Mg Chew 81 Mg CHEW DAILY Reported Atorvastatin (Atorvastatin Calcium) 40 Mg Tab 40 Mg PO HS Clopidogrel (Clopidogrel Bisulfate) 75 Mg Tab 75 Mg PO DAILY Donepezil 5 Mg Tab 5 Mg PO HS Memantine 5 Mg Tab 5 Mg PO BID Review of Systems Except as stated in HPI: all other systems reviewed are Neg Physical Exam Narrative GENERAL: 71-year-old man, pale, clammy. SKIN: Focused skin assessment warm/dry. HEAD: Atraumatic. Normocephalic. CARDIOVASCULAR: Regular rate and rhythm. No murmur appreciated. RESPIRATORY: No accessory muscle use. Clear to auscultation. Breath sounds equal bilaterally. GASTROINTESTINAL: Abdomen soft, non-tender, nondistended. Hepatic and splenic margins not palpable. RECTAL: Light brown stool in the rectal vault. Guaiac negative. MUSCULOSKELETAL: No obvious deformities. No clubbing. No cyanosis. No edema. NEUROLOGICAL: Awake and alert. Mild confusion. No obvious cranial nerve deficits. Motor grossly within normal limits. Normal speech. PSYCHIATRIC: Appropriate mood and affect; insight and judgment normal. Data Data Last Documented VS Vital Signs Date Time Temp Pulse Resp B/P Pulse Ox O2 Delivery O2 Flow Rate FiO2 06/19/17 23:00 54 16 164/67 100 Nasal Cannula 2 06/19/17 20:22 96.5 Orders Complete Blood Count With Diff (06/19/17 20:28) Comprehensive Metabolic Panel (06/19/17 20:28) B-Type Natriuretic Peptide (06/19/17 20:28) Act Partial Throm Time (Ptt) (06/19/17 20:28) Prothrombin Time / Inr (Pt) (06/19/17 20:28) Magnesium (Mg) (06/19/17 20:28) Troponin I (06/19/17 20:28) Urinalysis - C+S If Indicated (06/19/17 20:28) Iv Access Insert/Monitor (06/19/17 20:28) Electrocardiogram (06/19/17 20:28) Ecg Monitoring (06/19/17 20:28) Oximetry (06/19/17 20:28) Oxygen Administration (06/19/17 20:28) Chest, Single Ap (06/19/17 20:28) Sodium Chloride 0.9% Flush (Ns Flush) (06/19/17 20:30) Sodium Chlor 0.9% 1000 Ml Inj (Ns 1000 M (06/19/17 20:30) Thyroid Stimulating Hormone (06/19/17 20:41) Ondansetron Inj (Zofran Inj) (06/19/17 20:45) Blood Culture (06/19/17 20:42) Lactic Acid (06/19/17 20:45) Urinary Catheter Insert/Apply (06/19/17 21:16) Urine Culture (06/19/17 20:55) Ceftriaxone Inj (Rocephin Inj) (06/19/17 22:30) Admit Order (Ed Use Only) (06/19/17 ) Labs Laboratory Tests Test 06/19/17 06/19/17 06/19/17 20:20 20:45 20:55 White Blood Count 12.7 TH/MM3 Red Blood Count 4.41 MIL/MM3 Hemoglobin 13.4 GM/DL Hematocrit 40.4 % Mean Corpuscular Volume 91.6 FL Mean Corpuscular Hemoglobin 30.4 PG Mean Corpuscular Hemoglobin 33.2 % Concent Red Cell Distribution Width 13.4 % Platelet Count 207 TH/MM3 Mean Platelet Volume 9.5 FL Neutrophils (%) (Auto) 76.5 % Lymphocytes (%) (Auto) 15.3 % Monocytes (%) (Auto) 6.1 % Eosinophils (%) (Auto) 1.5 % Basophils (%) (Auto) 0.6 % Neutrophils # (Auto) 9.7 TH/MM3 Lymphocytes # (Auto) 1.9 TH/MM3 Monocytes # (Auto) 0.8 TH/MM3 Eosinophils # (Auto) 0.2 TH/MM3 Basophils # (Auto) 0.1 TH/MM3 CBC Comment DIFF FINAL Differential Comment Prothrombin Time 11.9 SEC Prothromb Time International 1.1 RATIO Ratio Activated Partial 23.5 SEC Thromboplast Time Sodium Level 141 MEQ/L Potassium Level 3.9 MEQ/L Chloride Level 110 MEQ/L Carbon Dioxide Level 20.8 MEQ/L Anion Gap 10 MEQ/L Blood Urea Nitrogen 18 MG/DL Creatinine 0.98 MG/DL Estimat Glomerular Filtration 75 ML/MIN Rate Random Glucose 162 MG/DL Calcium Level 8.6 MG/DL Magnesium Level 1.8 MG/DL Total Bilirubin 0.9 MG/DL Aspartate Amino Transf 23 U/L (AST/SGOT) Alanine Aminotransferase 33 U/L (ALT/SGPT) Alkaline Phosphatase 96 U/L Troponin I LESS THAN 0.02 NG/ML B-Type Natriuretic Peptide 153 PG/ML Total Protein 6.0 GM/DL Albumin 3.4 GM/DL Thyroid Stimulating Hormone 1.910 uIU/ML 3rd Gen Lactic Acid Level 2.0 mmol/L Urine Color YELLOW Urine Turbidity HAZY Urine pH 7.5 Urine Specific [place] 1.026 Urine Protein 30 mg/dL Urine Glucose (UA) NEG mg/dL Urine Ketones NEG mg/dL Urine Occult Blood NEG Urine Nitrite NEG Urine Bilirubin NEG Urine Urobilinogen LESS THAN 2.0 MG/DL Urine Leukocyte Esterase NEG Urine RBC 2 /hpf Urine WBC 10 /hpf Microscopic Urinalysis Comment CULTURE INDICATED MDM Medical Decision Making Medical Screen Exam Complete: Yes Emergency Medical Condition: Yes Interpretation(s) My review of EKG: Sinus bradycardia rate of 57, normal axis, SC interval 172, some nonspecific lateral ST depressions. LABS: CBC is remarkable for white count of 12.7 thousand. CMP is unremarkable. Troponin negative. BNP 153. Lactate 2.0. Coags 1.1 UA is unremarkable. Chest x-ray: Lungs are clear. Differential Diagnosis Vasovagal episode, infection, GI bleed, other Narrative Course Medical decision making Is a 71-year-old man who presents to the emergency department after a near syncopal episode. Looks overall improved at this point but still pale and a little bit ill. 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 His initial workup is overall unremarkable. His a little bit of pyuria in his urine, but I'm unconvinced that a UTI as a cause of his symptoms. We'll plan on admission for observation. [facility] Point of Care Internal Pos. & Neg. Controls: Passed Fecal Specimen Occult Blood: Negative Diagnosis Primary Impression: Near syncope Additional Impression: Altered mental status Nir Garnica MD Jun 19, 2017 22:38
[2017-06-19 23:00] VITALS: BP 164/67; PULSE 54; RESP 16; O2SAT 100
--- NOTE | 2017-06-19 23:43 | HHI.HP ---
[facility] Service [facility] Primary Care Physician Wisam Delgadillo MD Admission Diagnosis bradycardia, near syncope Diagnoses: (1) Near syncope Diagnosis: Principal (2) Symptomatic bradycardia Diagnosis: Principal (3) Dehydration Diagnosis: Principal (4) UTI (urinary tract infection) Diagnosis: Principal Travel History International Travel<30 Days: No Contact w/Intl Traveler <30 Da: No Traveled to Known Affected Are: No History of Present Illness This is a 71-year-old male with a PMH of HTN, Hyperlipidemia, Dementia and h/o CVA was brought to the ER by EMS secondary to episode of near syncope. Per , patient had complaints of dizziness, became diaphoretic and had near syncopal episode. Upon EMS arrival, patient noted to be cardiac with HR in the 30s, s/p 0.5mg Atropine w/ HR increased to 70's. HR 50's while in ER. Denies h/o similar symptoms in the past. No c/o chest pain, SOB, fever, chills or sick contacts. On arrival, BP 155/69, HR 55, O2 sat 97% on 2L NC, Afebrile. WBC 12.7. GFR 75, previously 87 on 03/22/17. Troponin negative. BNP 153. Lactic Acid 2.0. INR 1.1. UA positive for UTI. CXR with no acute findings. Review of Systems Except as stated in HPI: all other systems reviewed are Neg ROS: 14 point review of systems otherwise negative. Past Family Social History Past Medical History PMH: HTN, Hyperlipidemia, Dementia and h/o CVA Past Surgical History PAST SURGICAL HISTORY: Tonsillectomy, Appendectomy Allergies: Coded Allergies: Penicillin (Verified Allergy, Unknown, 06/19/17) Family History PAST FAMILY HISTORY: Reviewed. No h/o DM or CAD Social History PAST SOCIAL HISTORY: Occasional alcohol. Smokes 1/2ppd. Negative for drugs. Physical Exam Vital Signs Vital Signs Date Time Temp Pulse Resp B/P Pulse Ox O2 Delivery O2 Flow Rate FiO2 06/19/17 22:00 54 16 154/67 99 Nasal Cannula 2 06/19/17 21:30 55 16 150/65 99 Nasal Cannula 2 06/19/17 20:33 97 Nasal Cannula 2 06/19/17 20:22 96.5 55 16 155/69 97 Physical Exam PE: GENERAL: Elderly white male in no acute distress. HEENT: PERRLA, EOMI. No scleral icterus or conjunctival pallor. No lid lag or facial droop. CARDIOVASCULAR: Regular rate and rhythm. No obvious murmurs to auscultation. No chest tenderness to palpation. RESPIRATORY: No obvious rhonchi or wheezing. Clear to auscultation. Breath sounds equal bilaterally. GASTROINTESTINAL: Abdomen soft, non-tender, nondistended. BS normal. MUSCULOSKELETAL: Extremities without clubbing, cyanosis, or edema. No obvious deformities. NEUROLOGICAL: Awake, alert, intermittent confusion. No focal neurologic deficits. Moving both upper and lower extremities spontaneously. Laboratory Laboratory Tests Test 06/19/17 06/19/17 06/19/17 20:20 20:45 20:55 White Blood Count 12.7 Red Blood Count 4.41 Hemoglobin 13.4 Hematocrit 40.4 Mean Corpuscular Volume 91.6 Mean Corpuscular Hemoglobin 30.4 Mean Corpuscular Hemoglobin 33.2 Concent Red Cell Distribution Width 13.4 Platelet Count 207 Mean Platelet Volume 9.5 Neutrophils (%) (Auto) 76.5 Lymphocytes (%) (Auto) 15.3 Monocytes (%) (Auto) 6.1 Eosinophils (%) (Auto) 1.5 Basophils (%) (Auto) 0.6 Neutrophils # (Auto) 9.7 Lymphocytes # (Auto) 1.9 Monocytes # (Auto) 0.8 Eosinophils # (Auto) 0.2 Basophils # (Auto) 0.1 CBC Comment DIFF FINAL Differential Comment Prothrombin Time 11.9 Prothromb Time International 1.1 Ratio Activated Partial 23.5 Thromboplast Time Sodium Level 141 Potassium Level 3.9 Chloride Level 110 Carbon Dioxide Level 20.8 Anion Gap 10 Blood Urea Nitrogen 18 Creatinine 0.98 Estimat Glomerular Filtration 75 Rate Random Glucose 162 Calcium Level 8.6 Magnesium Level 1.8 Total Bilirubin 0.9 Aspartate Amino Transf 23 (AST/SGOT) Alanine Aminotransferase 33 (ALT/SGPT) Alkaline Phosphatase 96 Troponin I LESS THAN 0.02 B-Type Natriuretic Peptide 153 Total Protein 6.0 Albumin 3.4 Thyroid Stimulating Hormone 1.910 3rd Gen Lactic Acid Level 2.0 Urine Color YELLOW Urine Turbidity HAZY Urine pH 7.5 Urine Specific [place] 1.026 Urine Protein 30 Urine Glucose (UA) NEG Urine Ketones NEG Urine Occult Blood NEG Urine Nitrite NEG Urine Bilirubin NEG Urine Urobilinogen LESS THAN 2.0 Urine Leukocyte Esterase NEG Urine RBC 2 Urine WBC 10 Microscopic Urinalysis Comment CULTURE INDICATED Date/Time Procedure Status Source Growth 06/19/17 20:55 Urine Culture Worksheet Urine Clean Catch Pending 06/19/17 20:45 Aerobic Blood Culture Received Blood Peripheral Pending 06/19/17 20:45 Anaerobic Blood Culture Received Blood Peripheral Pending Result Diagram: 06/19/17201906/19/172019 Assessment and Plan Problem List: (1) Near syncope ICD Code: R55 Status: Acute (2) Symptomatic bradycardia ICD Code: R00.1 Status: Acute (3) Dehydration ICD Code: E86.0 Status: Acute (4) UTI (urinary tract infection) ICD Code: N39.0 Status: Acute Assessment and Plan A/P: 1. Near Syncope: Likely multifactorial, secondary to symptomatic bradycardia and dehydration. Initial troponin negative, EKG with no acute ischemia. Will admit for observation, telemetry, check serial cardiac enzymes. IVF for hydration. 2. Symptomatic Bradycardia: HR 30s upon EMS arrival, s/p Atropine 0.5mg by EMS w/ improvement to 70's, while in ER HR has been 50-60's. Hold Propranolol. Telemetry. Echo 03/22/17 w/ EF 55%. Consult Cardiology for further evaluation. 3. Dehydration: GFR 75, BUN/Creatinine normal. IVF for hydration, repeat labs in am. 4. UTI: U/a w/ mild bacteriuria, follow up cultures. S/p Rocephin IV in ER, will continue w/ IV Abx. 5. DVT Prophylaxis: SCD/Teds. 6. Social work for d/c planning as needed. 7. Case discussed w/ ER physician at length. Catherine Gonzalez MD Jun 19, 2017 23:43
[2017-06-19] MEDS ORDERED: MORPHINE SULFATE 4 MG/ML INJ IV PRN (23:45)
[2017-06-19] MEDS ORDERED: SENNOSIDES 8.6 MG TAB PO PRN (23:45)
[2017-06-19] MEDS ORDERED: ACETAMINOPHEN 325 MG TAB PO PRN (23:45)
[2017-06-19] MEDS ORDERED: LACTULOSE SYRUP 20 GM/30 ML CUP PO PRN (23:45)
[2017-06-19] MEDS ORDERED: MAGNESIUM HYDROXIDE SUSP 30 ML CUP PO PRN (23:45)
[2017-06-19] MEDS ORDERED: BISACODYL 10 MG SUPP RECTAL PRN (23:45)
[2017-06-19] MEDS ORDERED: SODIUM CHLORIDE 0.9% FLUSH 10 ML FLUSH IV FLUSH PRN (23:45)
[2017-06-19] MEDS ORDERED: ACETAMINOPHEN/HYDROcodone 325 MG/5 MG TAB PO PRN (23:45)
[2017-06-19] MEDS ORDERED: ONDANSETRON HCL 4 MG/2 ML VIAL IVP PRN (23:45)
[2017-06-20] VITALS (24 sets, daily range): BP systolic 58–143; BP diastolic 57–74; PULSE 52–70; RESP 16–18; TEMP 97.4–98.8; O2SAT 96–100
[2017-06-20] MEDS: SODIUM CHLOR 0.9% 1000 ML INJ 1,000 ML IV SCH ×2 (00:45→09:39)
--- NOTE | 2017-06-20 09:25 | MB ---
cc: ALEXA TAN M.D. DATE OF CONSULTATION: 06/20/2017 I have reviewed prior and present hospital records. HISTORY OF PRESENT ILLNESS The patient is a 71-year-old gentleman I am seeing for near syncope. He denies any cardiac symptoms, however, and states that his significant other overreacts. PAST MEDICAL HISTORY 1. Hypertension. 2. Prior CVA. 3. TIA 04/07 with echocardiogram showing normal LV function and mild mitral regurgitation. 4. Dementia. 5. Appendectomy. 6. Tonsillectomy. 7. Subarachnoid bleed in 2010. 8. Prior bradycardia. SOCIAL HISTORY He has a significant other but is not . He occasionally drinks and smokes approximately half pack per day. ALLERGIES PENICILLIN. MEDICATIONS PRIOR TO ADMISSION Reviewed includin. Aspirin. 2. Atorvastatin. 3. Clopidogrel. 4. Donepezil. 5. Memantine. 6. Propranolol. EKG Shows sinus bradycardia with first-degree AV block and nonspecific ST-T wave changes. IMAGING STUDIES Chest x-ray is negative. LABORATORY FINDINGS CBC with a mildly elevated white count. PT/PTT normal. Potassium 3.9, creatinine 0.98, glucose 162, troponins negative at 0.02 x2. TSH normal. BNP borderline 153. REVIEW OF SYSTEMS Review of systems remarkable for chronic back pain, memory loss and joint aches. PHYSICAL EXAMINATION VITAL SIGNS: On exam in the emergency room apparently his heart rate has been in the 30s and during the night it did get down as low as the high 30s but he is mostly in the 40s and 50s. Afebrile. GENERAL: He is alert and oriented to name and place. HEENT: There are no xanthelasma and oropharyngeal mucosa normal. CHEST: Clear. NECK: JVD normal. HEART: S1-S2, no murmurs or gallops. ABDOMEN: Benign. EXTREMITIES: Show no cyanosis, clubbing or edema. PULSES: Carotids without bruits. Radials 2+. Femorals 2+ on the right and 1-2+ on the left without bruits. Pedals trace. He is not ambulated. PROBLEMS 1. Near syncope - the patient denies this, although he has documented bradycardia. He is on propranolol at home. 2. Hypertension. 3. Hyperlipidemia. 4. Dementia. 5. Prior TIA and subarachnoid bleed. RECOMMENDATIONS 1. DVT prophylaxis per primary service. 2. Tobacco abstinence. 3. At this point in time would hold propranolol. The situation is certainly unclear and I do not think there is a definite indication for permanent pacemaker placement. I will leave further management to the hospitalist service and then follow up with his primary care provider. All questions were answered. MD QUYEN Clemens/TLL /8:49 AM /9:04 AM
[2017-06-20 10:31] LABS: AUTOMATED NEUTROPHIL # 9.2 TH/MM3 (1.8-7.7); BASOPHIL % 0.3 % (0.0-2.0); EOSINOPHIL % 0.1 % (0.0-4.0); HEMATOCRIT 37.6 % (39.0-51.0); HEMO FLAGS DIFF FINAL; LYMPHOCYTE # 1.2 TH/MM3 (1.0-4.8); MEAN CELL VOLUME 91.6 FL (80.0-100.0); MEAN CORPUSCULAR HEMOGLOBIN 31.1 PG (27.0-34.0); NEUT % 83.6 % (16.0-70.0); PLATELET COUNT 122 TH/MM3 (150-450); RED BLOOD COUNT 4.11 MIL/MM3 (4.50-5.90); RED CELL DISTRIBUTION WIDTH 13.5 % (11.6-17.2)
--- NOTE | 2017-06-20 10:38 | HHI.PR ---
Subjective Remarks No acute events overnight. Afebrile, vital signs stable. Patient with no complaints this morning. Denies any additional syncopal episodes or dizziness. Has not been out of bed yet. Objective Vitals Vital Signs Date Time Temp Pulse Resp B/P Pulse Ox O2 Delivery O2 Flow Rate FiO2 06/20/17 07:30 56 06/20/17 07:30 98.7 56 18 107/60 98 06/20/17 05:47 97.4 53 18 143/68 98 06/20/17 05:00 58 06/20/17 04:00 52 06/20/17 03:00 55 06/20/17 03:00 97.4 57 16 139/74 99 06/20/17 00:00 56 16 141/63 100 Nasal Cannula 2 06/19/17 23:00 54 16 164/67 100 Nasal Cannula 2 06/19/17 22:00 54 16 154/67 99 Nasal Cannula 2 06/19/17 21:30 55 16 150/65 99 Nasal Cannula 2 06/19/17 20:33 97 Nasal Cannula 2 06/19/17 20:22 96.5 55 16 155/69 97 Result Diagram: 06/20/17 1015 06/19/172019 Objective Remarks GENERAL: Elderly white male in no acute distress. HEENT: PERRLA, EOMI. No scleral icterus or conjunctival pallor. No lid lag or facial droop. CARDIOVASCULAR: Regular rate and rhythm. No obvious murmurs to auscultation. No chest tenderness to palpation. RESPIRATORY: No obvious rhonchi or wheezing. Clear to auscultation. Breath sounds equal bilaterally. GASTROINTESTINAL: Abdomen soft, non-tender, nondistended. BS normal. MUSCULOSKELETAL: Extremities without clubbing, cyanosis, or edema. No obvious deformities. NEUROLOGICAL: Awake, alert, intermittent confusion. No focal neurologic deficits. Moving both upper and lower extremities spontaneously. A/P Problem List: (1) Near syncope ICD Code: R55 Status: Acute (2) Symptomatic bradycardia ICD Code: R00.1 Status: Acute (3) Dehydration ICD Code: E86.0 Status: Acute (4) UTI (urinary tract infection) ICD Code: N39.0 Status: Acute Assessment and Plan 1. Near Syncope: Likely multifactorial, secondary to symptomatic bradycardia and dehydration. Initial troponin negative, EKG with no acute ischemia. 2. Symptomatic Bradycardia: HR 30s upon EMS arrival, s/p Atropine 0.5mg by EMS w/ improvement to 70's, since HR has been 50-60's. Hold Propranolol. Telemetry. Echo 03/22/17 w/ EF 55%. Consult Cardiology for further evaluation, see no indication for pacemaker placement at this time. Recommend continued holding of propanolol. Follow-up as outpatient. Patient has been on bedrest since admission, consult physical therapy for assessment prior to discharge 3. Dehydration: Resolving with IV fluids 4. UTI: U/a w/ mild bacteriuria, follow up cultures. S/p Rocephin IV in ER, will continue w/ IV Abx. Anticipate DC on by mouth antibiotics. 5. DVT Prophylaxis: SCD/Teds. Discharge Planning To home tomorrow pending physical therapy assessment Shirley Ball MD R3 Jun 20, 2017 10:38
[2017-06-20] MEDS: DOCUSATE SODIUM 50 MG/SENNA 8.6 MG TAB PO SCH (10:46)
[2017-06-20] MEDS: ASPIRIN 81 MG CHEW TAB CHEW SCH (10:46)
[2017-06-20] MEDS: CLOPIDOGREL 75 MG TAB PO SCH (10:46)
[2017-06-20] MEDS: MEMANTINE HCL 5 MG TAB PO SCH (10:46)
[2017-06-20] MEDS: SODIUM CHLORIDE 0.9% FLUSH 10 ML FLUSH IV FLUSH SCH (10:49)
[2017-06-20 10:56] LABS: ANION GAP 9 MEQ/L (5-15); AST (GOT) 12 U/L (15-37); BICARBONATE 23.4 MEQ/L (21.0-32.0); BLOOD UREA NITROGEN 18 MG/DL (7-18); CHLORIDE 112 MEQ/L (98-107); GLOMERULAR FILTRATION RATE 93 ML/MIN (>89); POTASSIUM 4.2 MEQ/L (3.5-5.1); SODIUM (NA) 144 MEQ/L (136-145)
[2017-06-20 10:57] LABS: ALT (GPT) 29 U/L (12-78)
[2017-06-20 11:01] LABS: ALKALINE PHOSPHATASE 97 U/L (45-117); TOTAL BILIRUBIN ADULT 0.5 MG/DL (0.2-1.0)
--- NOTE | 2017-06-20 15:19 | EKG ---
Date Performed: 06/19/2017 Time Performed: 20:23:15 PTAGE: 71 years EKG: Sinus bradycardia First degree AV block Nonspecific ST-T change Compared to prior tracing, WA interval is slightly shorter. Sinus bradycardia persists. PREVIOUS TRACING was interpreted as atrial fibrillation, but is in fact Sinus rhythm with first degree AV block with sinus bradycardia. PREVIOUS TRACING 03/22/2017 DOCTOR: Khoi Ashby Interpretating Date/Time 06/20/2017 15:17:37
[2017-06-20] MEDS ORDERED: ATORVASTATIN 40 MG TAB PO SCH (21:00)
[2017-06-20] MEDS ORDERED: DONEPEZIL HCL 5 MG TAB PO SCH (21:00)
[2017-06-20] MEDS ORDERED: cefTRIAXone INJ 1,000 MG in SODIUM CHLORIDE 0.9% INJ 100 ML IV SCH (23:00)
[2017-06-21] VITALS (14 sets, daily range): BP systolic 135–147; BP diastolic 66–68; PULSE 50–60; RESP 16–18; TEMP 97.9–98.5; O2SAT 96–99
[2017-06-21] MEDS: SODIUM CHLORIDE 0.9% FLUSH 10 ML FLUSH IV FLUSH SCH ×2 (00:30→08:30)
[2017-06-21] MEDS: DOCUSATE SODIUM 50 MG/SENNA 8.6 MG TAB PO SCH ×2 (00:31→08:30)
[2017-06-21] MEDS: MEMANTINE HCL 5 MG TAB PO SCH ×2 (00:31→08:29)
[2017-06-21] MEDS: SODIUM CHLOR 0.9% 1000 ML INJ 1,000 ML IV SCH (05:39)
[2017-06-21] MEDS: CLOPIDOGREL 75 MG TAB PO SCH (08:29)
[2017-06-21] MEDS: ASPIRIN 81 MG CHEW TAB CHEW SCH (08:29)
--- NOTE | 2017-06-21 09:10 | HHI.FF ---
Face to Face Verification Diagnosis: (1) Near syncope (2) Symptomatic bradycardia Physical Therapy Order: Evaluate and Treat I have seen patient Bird Wang on 06/21/17. My clinical findings support the need for the requested home health care services because: Per our PT assessment in hospital pt will require home health PT Deconditioned w/ increased weakness I certify that my clinical findings support that this patient is homebound because: Per our PT assessment in hospital pt will require home health PT Unsteady gait/balance Harriet Olvera MD Jun 21, 2017 09:10
--- NOTE | 2017-06-21 09:55 | HHI.PR ---
Subjective Remarks Patient states he feels well. Denies any chest pain, shortness of breath, lightheadedness or dizziness. He would like to go home soon. Objective Vitals Vital Signs Date Time Temp Pulse Resp B/P Pulse Ox O2 Delivery O2 Flow Rate FiO2 06/21/17 08:00 52 06/21/17 08:00 98.5 59 18 147/67 96 06/21/17 07:13 16 06/21/17 06:05 97.9 60 16 135/66 97 06/21/17 06:00 54 06/21/17 05:00 50 06/21/17 04:00 56 06/21/17 03:00 54 06/21/17 02:00 54 06/21/17 01:00 54 06/21/17 00:04 97.9 53 16 143/68 99 06/21/17 00:00 56 06/20/17 23:00 54 06/20/17 22:00 54 06/20/17 21:00 56 06/20/17 20:00 97.4 57 16 139/74 99 06/20/17 20:00 58 06/20/17 19:00 52 06/20/17 18:00 52 06/20/17 17:00 54 06/20/17 16:00 57 06/20/17 15:30 97.8 57 18 58/57 96 06/20/17 15:00 62 06/20/17 14:00 62 06/20/17 13:00 60 06/20/17 12:00 60 06/20/17 11:45 98.8 62 16 115/57 96 06/20/17 11:00 70 06/20/17 10:00 62 I/O 06/20/17 06/20/17 06/20/17 06/21/17 06/21/17 06/21/17 06:59 14:59 22:59 06:59 14:59 22:59 Intake Total 1245 ml 1340 ml Output Total 450 ml 360 ml Balance 795 ml 980 ml Intake Oral 480 ml 240 ml IV Total 765 ml 1100 ml Output Urine Total 450 ml 360 ml # Bowel Movements 0 0 Result Diagram: 06/20/17 1015 06/20/17 1015 Imaging Last Impressions Chest X-Ray 06/19/172027 Signed Impressions: Service Date/Time: Monday, June 19, 2017 20:55 - CONCLUSION: The lungs are clear. Yusef Fisher MD Objective Remarks GENERAL: Elderly white male sitting in bed, appears comfortable. HEENT: EOMI. CARDIOVASCULAR: Regular rate and rhythm. No obvious murmurs to auscultation. RESPIRATORY: No obvious rhonchi or wheezing. Clear to auscultation. Breath sounds equal bilaterally. GASTROINTESTINAL: Abdomen soft, non-tender, nondistended. BS normal. MUSCULOSKELETAL: Extremities without edema. No obvious deformities. NEUROLOGICAL: Awake, alert. No focal neurologic deficits. Moving both upper and lower extremities spontaneously. A/P Problem List: (1) Near syncope ICD Code: R55 Status: Acute (2) Symptomatic bradycardia ICD Code: R00.1 Status: Acute (3) Dehydration ICD Code: E86.0 Status: Acute (4) UTI (urinary tract infection) ICD Code: N39.0 Status: Acute Assessment and Plan 1. Near Syncope: Likely multifactorial, secondary to symptomatic bradycardia and dehydration. Initial troponin negative, EKG with no acute ischemia. 2. Symptomatic Bradycardia: HR 30s upon EMS arrival, s/p Atropine 0.5mg by EMS w/ improvement to 70's, since HR has been 50-60's. Continue to Hold Propranolol. Telemetry. Echo 03/22/17 w/ EF 55%. Cardiology evaluated the patient, sees no indication for pacemaker placement at this time. Recommend continued holding of propanolol. Follow-up as outpatient. Physical therapy evaluated the patient and recommends home PT. [id number] has been completed. 3. Dehydration: Resolved. 4. UTI: U/a w/ mild bacteriuria, urine cultures pending. On IV Rocephin.. Anticipate DC on by mouth antibiotics once final urine culture results available. 5. DVT Prophylaxis: SCD/Teds. Discharge Planning Anticipate discharge later today. RN to call with final urine culture and blood culture results. Condition: Stable Activity ad ainsley. with home health PT Diet heart healthy Scripts will be in chart if needed. Harriet Olvera MD Jun 21, 2017 09:55
== END 2017-06-21 12:15 | disposition home health service (06) ==
LOC: NEPC 20:17 → UNDOADMOB 23:37 → NEDA 23:37 → HCIS 06-20 00:57 → NEDA 06-20 00:57 → HCIS 06-20 23:25 → UNDODISOB 06-21 12:15
PROVIDERS: ADMIT Hospitalist; ATTEND Hospitalist
DX: R55 Syncope and collapse (principal); R00.1 Bradycardia, unspecified; E86.0 Dehydration; R41.82 Altered mental status, unspecified; R06.02 Shortness of breath; I44.0 Atrioventricular block, first degree; R11.10 Vomiting, unspecified; R61 Generalized hyperhidrosis; R42 Dizziness and giddiness; N39.0 Urinary tract infection, site not specified; I10 Essential (primary) hypertension; I34.0 Nonrheumatic mitral (valve) insufficiency; E78.5 Hyperlipidemia, unspecified; F03.90 Unspecified dementia, unspecified severity, without behavioral disturbance, psychotic disturbance, mood disturbance, and anxiety; F17.200 Nicotine dependence, unspecified, uncomplicated; Z79.899 Other long term (current) drug therapy; Z79.82 Long term (current) use of aspirin; Z86.73 Personal history of transient ischemic attack (TIA), and cerebral infarction without residual deficits
CPT/HCPCS: 51702; 71010; 80053; 81001; 83605; 83735; 83880; 84443; 84484; 85025; 85610; 85730; 87040; 87086; 93005; 96374; 96375; 97110; 97116; 97163; 99285; G0378; G8987; G8988; J0696; J2405; J7030